=== PATIENT | female | born 2000 | race Caucasian/White ===

== ENCOUNTER 2021-10-04 05:55 | Emergency (ER) | payer MEDICAID ==
[~2021-10-04] VITALS: Ht 154.9 cm; Wt 77.3 kg
[2021-10-04] MEDS ORDERED: HYDROGEN PEROXIDE 118 ML SOLUTION TP ONE (07:00)
[2021-10-04] MEDS ORDERED: SULF-261 PO (07:11)
[2021-10-04] MEDS ORDERED: CEPH500C3 PO (07:11)
[2021-10-04 07:17] VITALS: BP 137/92
== END 2021-10-04 07:26 | disposition home or self-care (01) ==
LOC: EMS 06:00
DX: S00.451A Superficial foreign body of right ear, initial encounter (principal); H60.11 Cellulitis of right external ear; W45.8XXA Other foreign body or object entering through skin, initial encounter; Y93.89 Activity, other specified; Y92.89 Other specified places as the place of occurrence of the external cause; Y99.8 Other external cause status
CPT/HCPCS: 99283; 99284

== ENCOUNTER 2025-06-09 16:47 | Emergency (ER) | payer MEDICAID, OTHER ==
[~2025-06-09] VITALS: Ht 157.5 cm; Wt 70.5 kg
[~2025-06-09 16:47] MED LIST: CEPH-558 PO; SULF1TAB94 PO
[2025-06-09 16:51] VITALS: TEMP 98.2
[2025-06-09 17:06] LABS: APPEARANCE,URINE CLEAR (CLEAR); GLUCOSE, URINE (UA) NEGATIVE (NEGATIVE); LEUKOCYTE ESTERASE ,URINE NEGATIVE (NEGATIVE); NITRATE,URINE NEGATIVE (NEGATIVE); OCCULT BLOOD,URINE LARGE (NEGATIVE); SPECIFIC GRAVITIY, URINE 1.006 (1.003-1.030)
[2025-06-09 17:21] LABS: SQUAMOUS EPITHELIAL CELL,UR Moderate /LPF (None Seen)
[2025-06-09 17:28] LABS: HCG,QUAL URINE NEGATIVE (NEGATIVE)
[2025-06-09] MEDS: IBUPROFEN 600 MG TABLET PO ONE (18:17)
[2025-06-09] MEDS: ACETAMINOPHEN 500 MG TABLET PO ONE (18:17)
[2025-06-09] MEDS ORDERED: ACET-66 PO (20:09)
[2025-06-09] MEDS ORDERED: IBUP-1554 PO (20:09)
[2025-06-09] MEDS ORDERED: METH-659 PO (20:09)
[2025-06-09 20:23] VITALS: BP 124/67; PULSE 75; RESP 17; O2SAT 98
== END 2025-06-09 20:25 | disposition home or self-care (01) ==
LOC: EMS 16:47
DX: S39.012A Strain of muscle, fascia and tendon of lower back, initial encounter (principal); X58.XXXA Exposure to other specified factors, initial encounter; Y93.89 Activity, other specified; Y92.89 Other specified places as the place of occurrence of the external cause; Y99.8 Other external cause status
CPT/HCPCS: 72070; 72100; 81001; 84703; 99284; Z7502; Z7610